=== PATIENT | female | born 1990 | race Caucasian/White ===

== ENCOUNTER 2018-10-19 22:48 | Emergency (ER) | payer OTHER ==
[~2018-10-19] VITALS: Ht 160 cm; Wt 97.7 kg
[~2018-10-19 22:48] MED LIST: DDAVP TAB0.2 MG PO; ELMIRON 10100 MG/CA1 PO; MYRBETR25MG PO; NO HOME MEDICATIONS; NORCO 325 MG-51 TAB PO; NUVARING VAG RING; NUVARING1 ICR VG; PERCOCET 325 MG1 TA2 PO; ZOFRAN ODT4 MG PO
[2018-10-19 22:54] VITALS: BP 145/81; TEMP 97.5
[2018-10-19 23:25] LABS: COLLECTION METHOD CLEAN CATCH
[2018-10-19 23:29] LABS: BASO # 0.1 (0.0-0.2); BASO % 0.4 % (0.0-2.0); EOS # 0.3 (0.0-0.7); EOS % 1.8 % (0-4.0); GRAN # 9.2 (1.4-6.5); GRAN % 61.3 % (42.2-75.2); HEMATOCRIT 43.4 % (37.0-47.0); HEMOGLOBIN 14.4 g/dl (12.5-16.0); LYMPH # 4.8 (1.2-3.4); LYMPH % 31.8 % (20.0-51.0); MEAN CELL VOLUME 84 fl (80.0-100.0); MEAN CORPUSCULAR HEMOGLOBIN 28 pg (27.0-31.0); MEAN CORPUSCULAR HGB CONC 33 g/dl (33.0-37.0); MEAN PLATELET VOLUME 9.7 fl (7.4-10.4); MONO # 0.6 (0.1-0.6); MONO % 4.3 % (1.7-9.3); PLATELET COUNT 375 K/mm3 (130-400); RED BLOOD COUNT 5.19 M/mm3 (4.10-5.30); REDCELL DISTRIBUTION WIDTH-CV 14.3 % (11.5-14.5)
[2018-10-19 23:42] LABS: ALBUMIN 4.5 gm/dL (3.5-5.0); BILIRUBIN,TOTAL 0.5 mg/dL (0.0-1.0); C-REACTIVE PROTEIN 1.6 mg/dL (0.0-0.9); CALCIUM 9.7 mg/dL (8.4-10.2); CREATININE, serum 0.79 mg/dL (0.52-1.25); POTASSIUM 3.6 mmol/L (3.4-5.0); TOTAL PROTEIN 8.1 gm/dL (6.4-8.2)
[2018-10-19 23:42] LABS: MUCOUS Present /lpf; PH 6 (5-8); URINE APPEARANCE Hazy; URINE BACTERIA Rare /hpf; URINE BILIRUBIN Negative (NEGATIVE); URINE BLOOD 3+ (NEGATIVE); URINE CALCIUM OXALATE CRYSTAL Present /hpf; URINE COLOR Amber; URINE GLUCOSE Negative (NEGATIVE); URINE KETONE Trace (NEGATIVE); URINE LEUKOCYTE ESTERASE Trace (NEGATIVE); URINE NITRATE Negative (NEGATIVE); URINE PROTEIN(semi-quant) 2+ (NEGATIVE); URINE RBC 20-50 /hpf
[2018-10-19] MEDS ORDERED: AMBIEN CR 12.12.5 MG PO (23:50)
[2018-10-19] MEDS ORDERED: GLUCOPHAGE500 MG/TAB PO (23:50)
[2018-10-19] MEDS ORDERED: EFFEXOR 75M75 MG/TAB PO (23:50)
[2018-10-20] MEDS ORDERED: ZOFRAN ODT4 MG PO (03:34)
[2018-10-20] MEDS ORDERED: OMNICEF 300MG300 MG PO (03:34)
[2018-10-20 03:57] VITALS: PULSE 112
== END 2018-10-20 04:00 | disposition home or self-care (01) ==
LOC: COL.ER 22:48
PROVIDERS: Physician Assistant
DX: N39.0 Urinary tract infection, site not specified (principal); N83.202 Unspecified ovarian cyst, left side; Z79.84 Long term (current) use of oral hypoglycemic drugs; Z87.442 Personal history of urinary calculi; Z97.5 Presence of (intrauterine) contraceptive device
CPT/HCPCS: A4216; J0696; J1170; J2405; J3010; J7030; Q9967

== ENCOUNTER 2018-11-19 20:22 | Emergency (ER) | payer OTHER ==
[~2018-11-19] VITALS: Ht 157.5 cm; Wt 100.0 kg
[~2018-11-19 20:22] MED LIST changes: +AMBIEN CR 12.12.5 MG PO; +EFFEXOR 75M75 MG/TAB PO; +GLUCOPHAGE500 MG/TAB PO; +OMNICEF 300MG300 MG PO
[2018-11-19 20:34] VITALS: TEMP 98.6
[2018-11-19 20:46] LABS: COLLECTION METHOD CLEAN CATCH
[2018-11-19 20:58] LABS: MUCOUS Present /lpf; PH 6 (5-8); URINE APPEARANCE Clear; URINE BACTERIA Rare /hpf; URINE BILIRUBIN Negative (NEGATIVE); URINE BLOOD Negative (NEGATIVE); URINE COLOR Yellow; URINE GLUCOSE Negative (NEGATIVE); URINE KETONE Negative (NEGATIVE); URINE LEUKOCYTE ESTERASE Negative (NEGATIVE); URINE NITRATE Negative (NEGATIVE); URINE PROTEIN(semi-quant) 1+ (NEGATIVE); URINE UROBILINOGEN Negative (NEGATIVE)
[2018-11-19 22:01] LABS: BASO # 0.1 (0.0-0.2); BASO % 0.4 % (0.0-2.0); EOS # 0.2 (0.0-0.7); EOS % 1.1 % (0-4.0); GRAN # 9.2 (1.4-6.5); HEMATOCRIT 42.5 % (37.0-47.0); HEMOGLOBIN 13.9 g/dl (12.5-16.0); LYMPH # 3.9 (1.2-3.4); LYMPH % 27.5 % (20.0-51.0); MEAN CELL VOLUME 84 fl (80.0-100.0); MEAN CORPUSCULAR HEMOGLOBIN 28 pg (27.0-31.0); MEAN CORPUSCULAR HGB CONC 33 g/dl (33.0-37.0); MEAN PLATELET VOLUME 10.2 fl (7.4-10.4); MONO # 0.9 (0.1-0.6); MONO % 6.5 % (1.7-9.3); PLATELET COUNT 332 K/mm3 (130-400); RED BLOOD COUNT 5.04 M/mm3 (4.10-5.30); REDCELL DISTRIBUTION WIDTH-CV 14.6 % (11.5-14.5)
[2018-11-19] MEDS ORDERED: XARELTO10 MG PO (22:05)
[2018-11-19 22:12] LABS: ALBUMIN 4.6 gm/dL (3.5-5.0); BILIRUBIN,TOTAL 0.2 mg/dL (0.0-1.0); CALCIUM 9.9 mg/dL (8.4-10.2); CREATININE, serum 0.67 mg/dL (0.52-1.25); TOTAL PROTEIN 8.3 gm/dL (6.4-8.2)
[2018-11-20 01:01] VITALS: BP 117/69; PULSE 96
== END 2018-11-20 01:01 | disposition home or self-care (01) ==
LOC: COL.ER 20:22
PROVIDERS: Emergency Medicine
DX: R10.9 Unspecified abdominal pain (principal); Z87.442 Personal history of urinary calculi
CPT/HCPCS: J1170; J1885; J2270; J2765; J3010; J7030

== ENCOUNTER 2018-11-26 23:53 | Emergency (ER) | payer OTHER ==
[~2018-11-26] VITALS: Ht 160 cm; Wt 97.7 kg
[~2018-11-26 23:53] MED LIST changes: +XARELTO10 MG PO
[2018-11-26 23:55] VITALS: TEMP 98.4
[2018-11-27 00:23] LABS: BASO # 0.1 (0.0-0.2); BASO % 0.4 % (0.0-2.0); EOS # 0.3 (0.0-0.7); EOS % 2.2 % (0-4.0); GRAN # 6.6 (1.4-6.5); GRAN % 52.4 % (42.2-75.2); HEMATOCRIT 40.9 % (37.0-47.0); HEMOGLOBIN 13.5 g/dl (12.5-16.0); LYMPH # 4.9 (1.2-3.4); LYMPH % 39.4 % (20.0-51.0); MEAN CELL VOLUME 85 fl (80.0-100.0); MEAN CORPUSCULAR HEMOGLOBIN 28 pg (27.0-31.0); MEAN CORPUSCULAR HGB CONC 33 g/dl (33.0-37.0); MEAN PLATELET VOLUME 10.5 fl (7.4-10.4); MONO # 0.7 (0.1-0.6); MONO % 5.4 % (1.7-9.3); PLATELET COUNT 331 K/mm3 (130-400); RED BLOOD COUNT 4.84 M/mm3 (4.10-5.30); REDCELL DISTRIBUTION WIDTH-CV 14.1 % (11.5-14.5)
[2018-11-27 00:31] LABS: PROTHROMBIN TIME 10.9 SECONDS (9.7-12.8)
[2018-11-27 00:34] LABS: PARTIAL THROMBOPLASTIN TIME 32.3 SECONDS (26.0-37.0)
[2018-11-27 00:35] LABS: ALBUMIN 4.3 gm/dL (3.5-5.0); BILIRUBIN,TOTAL 0.2 mg/dL (0.0-1.0); CALCIUM 9.6 mg/dL (8.4-10.2); CREATININE, serum 0.63 mg/dL (0.52-1.25); POTASSIUM 3.7 mmol/L (3.4-5.0); TOTAL PROTEIN 7.9 gm/dL (6.4-8.2)
[2018-11-27 00:40] LABS: D-DIMER < 200.00 ng/mLDDu (200-230)
[2018-11-27 01:53] LABS: COLLECTION METHOD CLEAN CATCH
[2018-11-27 02:00] LABS: MUCOUS Present /lpf; PH 5 (5-8); SQUAMOUS EPITHELIAL 0-2 /hpf; URINE APPEARANCE Clear; URINE BACTERIA None Seen /hpf; URINE BILIRUBIN Negative (NEGATIVE); URINE BLOOD 3+ (NEGATIVE); URINE COLOR Yellow; URINE GLUCOSE Negative (NEGATIVE); URINE KETONE Negative (NEGATIVE); URINE LEUKOCYTE ESTERASE Negative (NEGATIVE); URINE NITRATE Negative (NEGATIVE); URINE PROTEIN(semi-quant) Negative (NEGATIVE); URINE RBC >50 /hpf
[2018-11-27 03:10] VITALS: BP 141/89; PULSE 115
== END 2018-11-27 03:10 | disposition home or self-care (01) ==
LOC: COL.ER 23:53
PROVIDERS: Emergency Medicine
DX: R56.9 Unspecified convulsions (principal)
CPT/HCPCS: J1885; J2405; J3010; J7030

== ENCOUNTER 2018-12-07 23:40 | Emergency (ER) | payer OTHER ==
[~2018-12-07] VITALS: Ht 162.6 cm; Wt 100.0 kg
[2018-12-07 23:43] VITALS: TEMP 99.1
[2018-12-08] MEDS ORDERED: EFFEXOR XR75 MG/CAP PO (00:12)
[2018-12-08 00:13] LABS: COLLECTION METHOD CLEAN CATCH
[2018-12-08 00:22] LABS: MUCOUS Present /lpf; PH 6 (5-8); URINE APPEARANCE Clear; URINE BACTERIA None Seen /hpf; URINE BILIRUBIN Positive (NEGATIVE); URINE BLOOD Negative (NEGATIVE); URINE CALCIUM OXALATE CRYSTAL Present /hpf; URINE COLOR Amber; URINE GLUCOSE Negative (NEGATIVE); URINE KETONE Trace (NEGATIVE); URINE LEUKOCYTE ESTERASE Negative (NEGATIVE); URINE NITRATE Negative (NEGATIVE); URINE PROTEIN(semi-quant) 1+ (NEGATIVE)
[2018-12-08 02:23] VITALS: PULSE 103
[2018-12-08] MEDS ORDERED: FLEXERIL 1010 MG/TAB PO (02:47)
[2018-12-08] MEDS ORDERED: NORCO 325 MG-51 TAB PO (02:47)
[2018-12-08 03:19] VITALS: BP 128/80
== END 2018-12-08 03:19 | disposition home or self-care (01) ==
LOC: COL.ER 23:40
PROVIDERS: Physician Assistant
DX: S20.212A Contusion of left front wall of thorax, initial encounter (principal); S23.3XXA Sprain of ligaments of thoracic spine, initial encounter; S33.9XXA Sprain of unspecified parts of lumbar spine and pelvis, initial encounter; F41.9 Anxiety disorder, unspecified; F31.9 Bipolar disorder, unspecified; W10.9XXA Fall (on) (from) unspecified stairs and steps, initial encounter
CPT/HCPCS: J1885

== ENCOUNTER 2018-12-12 10:08 | Emergency (ER) | payer OTHER ==
[~2018-12-12] VITALS: Ht 160 cm; Wt 104.5 kg
[~2018-12-12 10:08] MED LIST changes: +EFFEXOR XR75 MG/CAP PO; +FLEXERIL 1010 MG/TAB PO
[2018-12-12 10:17] VITALS: BP 119/80; TEMP 98.1
[2018-12-12 10:33] LABS: COLLECTION METHOD CLEAN CATCH
[2018-12-12 10:39] LABS: MUCOUS Present /lpf; PH 5 (5-8); URINE APPEARANCE Hazy; URINE BACTERIA Rare /hpf; URINE BILIRUBIN Negative (NEGATIVE); URINE BLOOD Negative (NEGATIVE); URINE COLOR Yellow; URINE GLUCOSE Negative (NEGATIVE); URINE KETONE Negative (NEGATIVE); URINE LEUKOCYTE ESTERASE Negative (NEGATIVE); URINE NITRATE Negative (NEGATIVE); URINE PROTEIN(semi-quant) Negative (NEGATIVE); URINE RBC 0-2 /hpf; URINE UROBILINOGEN Negative (NEGATIVE)
[2018-12-12] MEDS ORDERED: ZOFRAN ODT4 MG PO (11:15)
[2018-12-12] MEDS ORDERED: LIDODERM 5% PATC1 EA TP (11:15)
[2018-12-12] MEDS ORDERED: MOTRIN 800800 MG/TAB PO (11:15)
[2018-12-12 11:52] VITALS: PULSE 85
== END 2018-12-12 11:53 | disposition home or self-care (01) ==
LOC: COL.ER 10:08
PROVIDERS: Physician Assistant
DX: R10.9 Unspecified abdominal pain (principal)
CPT/HCPCS: J1885

== ENCOUNTER 2019-02-06 13:06 | Emergency (ER) | payer OTHER ==
[~2019-02-06] VITALS: Ht 160 cm; Wt 104.5 kg
[~2019-02-06 13:06] MED LIST changes: +LIDODERM 5% PATC1 EA TP; +MOTRIN 800800 MG/TAB PO
[2019-02-06 13:14] VITALS: TEMP 98.6
[2019-02-06 14:05] LABS: BASO # 0.1 (0.0-0.2); BASO % 0.4 % (0.0-2.0); EOS # 0.2 (0.0-0.7); EOS % 1.4 % (0-4.0); GRAN # 9.1 (1.4-6.5); GRAN % 69.2 % (42.2-75.2); HEMATOCRIT 40.9 % (37.0-47.0); HEMOGLOBIN 13.3 g/dl (12.5-16.0); LYMPH # 3.1 (1.2-3.4); LYMPH % 23.5 % (20.0-51.0); MEAN CELL VOLUME 85 fl (80.0-100.0); MEAN CORPUSCULAR HEMOGLOBIN 28 pg (27.0-31.0); MEAN CORPUSCULAR HGB CONC 33 g/dl (33.0-37.0); MEAN PLATELET VOLUME 9.9 fl (7.4-10.4); MONO # 0.7 (0.1-0.6); PLATELET COUNT 306 K/mm3 (130-400); RED BLOOD COUNT 4.82 M/mm3 (4.10-5.30); REDCELL DISTRIBUTION WIDTH-CV 13.9 % (11.5-14.5)
[2019-02-06] MEDS ORDERED: GLUCOPHAGE500 MG/TAB PO (14:11)
[2019-02-06] MEDS ORDERED: XANAX 1MG1 MG PO (14:11)
[2019-02-06 14:22] LABS: ALANINE AMINOTRANSFERASE 34 U/L (9-52); ALBUMIN 4.3 gm/dL (3.5-5.0); ALKALINE PHOSPHATASE 108 U/L (50-136); ANION GAP 10 mmol/L (7-16); AST,SGOT 34 U/L (15-37); BILIRUBIN,TOTAL 0.6 mg/dL (0.0-1.0); BLOOD UREA NITROGEN 10 mg/dL (7-17); CALCIUM 9.3 mg/dL (8.4-10.2); CARBON DIOXIDE 25 mmol/L (22-30); CHLORIDE 106 mmol/L (98-107); CREATININE, serum 0.67 (0.52-1.25); GLUCOSE 87 mg/dL (74-106); POTASSIUM 3.9 mmol/L (3.4-5.0); SODIUM 141 mmol/L (137-145); TOTAL PROTEIN 7.9 gm/dL (6.4-8.2)
[2019-02-06 14:54] LABS: TROPONIN-I < 0.012 ng/mL (0.000-0.035)
[2019-02-06 15:17] LABS: COLLECTION METHOD CLEAN CATCH
[2019-02-06 15:23] LABS: MUCOUS Present /lpf; PH 6 (5-8); SQUAMOUS EPITHELIAL 0-2 /hpf; URINE APPEARANCE Hazy; URINE BACTERIA Rare /hpf; URINE BILIRUBIN Negative (NEGATIVE); URINE BLOOD Negative (NEGATIVE); URINE COLOR Yellow; URINE GLUCOSE Negative (NEGATIVE); URINE KETONE 1+ (NEGATIVE); URINE LEUKOCYTE ESTERASE Negative (NEGATIVE); URINE NITRATE Negative (NEGATIVE); URINE PROTEIN(semi-quant) 1+ (NEGATIVE); URINE UROBILINOGEN Negative (NEGATIVE)
[2019-02-06 15:53] VITALS: BP 116/77; PULSE 92
== END 2019-02-06 16:05 | disposition home or self-care (01) ==
LOC: COL.ER 13:06
PROVIDERS: Physician Assistant
DX: S00.93XA Contusion of unspecified part of head, initial encounter (principal); R55 Syncope and collapse; Z87.442 Personal history of urinary calculi; Z86.711 Personal history of pulmonary embolism; W19.XXXA Unspecified fall, initial encounter; Z79.84 Long term (current) use of oral hypoglycemic drugs
CPT/HCPCS: J2405; J7030

== ENCOUNTER 2019-02-18 17:15 | Emergency (ER) | payer OTHER ==
[~2019-02-18] VITALS: Ht 157.5 cm; Wt 103.2 kg
[~2019-02-18 17:15] MED LIST changes: +MOTRIN 600600 MG/TAB PO; +ULTRAM 50MG TAB50 MG PO; +XANAX 1MG1 MG PO
[2019-02-18 17:26] VITALS: TEMP 97.7
[2019-02-18 18:05] LABS: BASO # 0.1 (0.0-0.2); BASO % 0.5 % (0.0-2.0); EOS # 0.3 (0.0-0.7); EOS % 2.6 % (0-4.0); GRAN # 7.1 (1.4-6.5); HEMATOCRIT 42.4 % (37.0-47.0); LYMPH # 2.9 (1.2-3.4); LYMPH % 26.7 % (20.0-51.0); MEAN CELL VOLUME 84 fl (80.0-100.0); MEAN CORPUSCULAR HGB CONC 33 g/dl (33.0-37.0); MONO # 0.5 (0.1-0.6); MONO % 4.9 % (1.7-9.3); PLATELET COUNT 355 K/mm3 (130-400); RED BLOOD COUNT 5.06 M/mm3 (4.10-5.30); REDCELL DISTRIBUTION WIDTH-CV 13.7 % (11.5-14.5)
[2019-02-18 18:07] LABS: HEMOGLOBIN 13.9 g/dl (12.5-16.0); MEAN CORPUSCULAR HEMOGLOBIN 27 pg (27.0-31.0)
[2019-02-18 18:18] LABS: ALBUMIN 4.5 gm/dL (3.5-5.0); BILIRUBIN,TOTAL 0.4 mg/dL (0.0-1.0); C-REACTIVE PROTEIN 1.5 mg/dL (0.0-0.9); CALCIUM 9.6 mg/dL (8.4-10.2); CREATININE, serum 0.69 (0.52-1.25); POTASSIUM 4.4 mmol/L (3.4-5.0); TOTAL PROTEIN 8.2 gm/dL (6.4-8.2)
[2019-02-18 19:09] LABS: COLLECTION METHOD CLEAN CATCH
[2019-02-18 19:27] LABS: MUCOUS Present /lpf; PH 9 (5-8); URINE APPEARANCE Clear; URINE BACTERIA None Seen /hpf; URINE BILIRUBIN Negative (NEGATIVE); URINE BLOOD Negative (NEGATIVE); URINE COLOR Yellow; URINE GLUCOSE Negative (NEGATIVE); URINE KETONE Negative (NEGATIVE); URINE LEUKOCYTE ESTERASE Negative (NEGATIVE); URINE NITRATE Negative (NEGATIVE); URINE PROTEIN(semi-quant) 1+ (NEGATIVE); URINE UROBILINOGEN Negative (NEGATIVE)
[2019-02-18] MEDS ORDERED: ZOFRAN ODT4 MG PO (19:58)
[2019-02-18] MEDS ORDERED: PHENERGAN 25 TA25 MG PO (19:58)
[2019-02-18 20:24] VITALS: BP 128/68; PULSE 88
== END 2019-02-18 20:28 | disposition home or self-care (01) ==
LOC: COL.ER 17:15
PROVIDERS: Emergency Medicine
DX: R10.31 Right lower quadrant pain (principal); Z90.49 Acquired absence of other specified parts of digestive tract
CPT/HCPCS: J1170; J2550; J7030; Q9967

== ENCOUNTER 2019-02-28 13:23 | Day surgery (SDC) | payer OTHER ==
[~2019-02-28] VITALS: Ht 160 cm; Wt 101.7 kg
[~2019-02-28 13:23] MED LIST changes: +PHENERGAN 25 TA25 MG PO
[2019-02-28 14:16] VITALS: BP 119/87; PULSE 86; TEMP 98.3
[2019-02-28 15:20] VITALS: BP 135/94; PULSE 88; TEMP 98.3
--- NOTE | 2019-02-28 15:20 | NUR ---
Pt returns to [facility] from [facility] procedure via cart. Pt ambulates with RN assist x 2 from cart to recliner. Monitors on and alarms set. Call light within reach. Pt is drowsy but answers all questions appropriately. Report received from LEEANNA Lane. Pt states she has no pain but does complain of nausea. "Mom" present in room. Pt allowed to rest for now.
--- NOTE | 2019-02-28 15:25 | NUR ---
Cool washcloth given to patient and placed on back of neck. Order for Zofran 4 mg IV once obtained from Dr. Bey.
[2019-02-28] MEDS ORDERED: PROTONIX 40MG T40 MG (15:27)
[2019-02-28 15:30] VITALS: BP 124/65; PULSE 97
--- NOTE | 2019-02-28 15:30 | NUR ---
Pt continues to be drowsy but is progressively getting more alert. Pt answers all questions appropriately. Pt continues to have nausea feelings but has not vomited.
--- NOTE | 2019-02-28 15:35 | NUR ---
Pt states nausea is much better. Pt requests ice water and crackers. Gag reflex is present.
[2019-02-28 15:45] VITALS: BP 123/81; PULSE 94
--- NOTE | 2019-02-28 15:45 | NUR ---
Pt taking food and drink well. No complications voiced by patients. Pt states she'd just like to sleep.
[2019-02-28 16:00] VITALS: BP 102/71; PULSE 84
[2019-02-28 16:15] VITALS: BP 112/78; PULSE 84
--- NOTE | 2019-02-28 16:25 | NUR ---
Pt transferred out of hospital via wheelchair and LEEANNA Lane assist, to private vehicle driven by "Mom."
--- NOTE | 2019-02-28 16:27 | NUR ---
Discharge instructions given to patient and "Mom." Handed to them are a thank you card, discharge instructions, diagnosis information, a discharge summary, and discharge med sheet. All questions answered to their satisfaction.
--- NOTE | 2019-02-28 16:35 | NUR ---
Pt transferred out of hospital via wheelchair and LEEANNA Lane assist, to private vehicle driven by "Mom."
== END 2019-02-28 16:35 | disposition home or self-care (01) ==
LOC: SDCO 13:23
DX: R19.7 Diarrhea, unspecified (principal); K92.0 Hematemesis; K21.9 Gastro-esophageal reflux disease without esophagitis
CPT/HCPCS: J2250; J2405; J3010; J7030

== ENCOUNTER 2019-03-09 14:31 | Emergency (ER) | payer OTHER ==
[~2019-03-09] VITALS: Ht 160 cm; Wt 102.5 kg
[~2019-03-09 14:31] MED LIST changes: +PROTONIX 40MG T40 MG
[2019-03-09 14:33] VITALS: BP 128/88; TEMP 99.1
[2019-03-09] MEDS ORDERED: ULTRAM 50MG TAB50 MG PO (14:44)
[2019-03-09] MEDS ORDERED: MOTRIN 600600 MG/TAB PO (14:45)
[2019-03-09] MEDS ORDERED: PHENERGAN 25 TA25 MG PO ×2 (14:45→17:04)
[2019-03-09] MEDS ORDERED: CARAFATE 1GM1 G PO (14:57)
[2019-03-09 15:34] LABS: COLLECTION METHOD CLEAN CATCH
[2019-03-09 15:53] LABS: BILIRUBIN,TOTAL 0.3 mg/dL (0.0-1.0); C-REACTIVE PROTEIN 1.4 mg/dL (0.0-0.9); CALCIUM 9.4 mg/dL (8.4-10.2); CREATININE, serum 0.61 (0.52-1.25); POTASSIUM 4.1 mmol/L (3.4-5.0); TOTAL PROTEIN 7.4 gm/dL (6.4-8.2)
[2019-03-09 15:55] LABS: BASO % 0.3 % (0.0-2.0); EOS # 0.2 (0.0-0.7); EOS % 1.7 % (0-4.0); GRAN # 7.2 (1.4-6.5); GRAN % 67.4 % (42.2-75.2); HEMATOCRIT 39.6 % (37.0-47.0); HEMOGLOBIN 12.7 g/dl (12.5-16.0); LYMPH # 2.7 (1.2-3.4); LYMPH % 25.2 % (20.0-51.0); MEAN CELL VOLUME 86 fl (80.0-100.0); MEAN CORPUSCULAR HEMOGLOBIN 27 pg (27.0-31.0); MEAN CORPUSCULAR HGB CONC 32 g/dl (33.0-37.0); MEAN PLATELET VOLUME 10.4 fl (7.4-10.4); MONO # 0.5 (0.1-0.6); PLATELET COUNT 291 K/mm3 (130-400); RED BLOOD COUNT 4.63 M/mm3 (4.10-5.30)
[2019-03-09 15:57] LABS: MUCOUS Present /lpf; PH 5 (5-8); URINE APPEARANCE Hazy; URINE BACTERIA None Seen /hpf; URINE BILIRUBIN Negative (NEGATIVE); URINE BLOOD Negative (NEGATIVE); URINE CALCIUM OXALATE CRYSTAL Present /hpf; URINE COLOR Yellow; URINE GLUCOSE Negative (NEGATIVE); URINE KETONE Negative (NEGATIVE); URINE LEUKOCYTE ESTERASE Negative (NEGATIVE); URINE NITRATE Negative (NEGATIVE); URINE PROTEIN(semi-quant) 1+ (NEGATIVE); URINE UROBILINOGEN Negative (NEGATIVE)
[2019-03-09 16:21] LABS: ERYTHROCYTE SEDIMENTATION RATE 18 mm/hr (0-20)
[2019-03-09] MEDS ORDERED: LOMOTIL 0.025 M1 TAB PO (16:52)
[2019-03-09 17:33] VITALS: PULSE 96
== END 2019-03-09 17:32 | disposition home or self-care (01) ==
LOC: COL.ER 14:31
PROVIDERS: Emergency Medicine
DX: R10.12 Left upper quadrant pain (principal); Z90.49 Acquired absence of other specified parts of digestive tract
CPT/HCPCS: J0780; J1170; J7030

== ENCOUNTER 2019-03-26 21:59 | Emergency (ER) | payer OTHER ==
[~2019-03-26] VITALS: Ht 160 cm; Wt 99.1 kg
[~2019-03-26 21:59] MED LIST changes: +CARAFATE 1GM1 G PO; +LOMOTIL 0.025 M1 TAB PO; -PROTONIX 40MG T40 MG; +PROTONIX 40MG T40 MG PO
[2019-03-26 22:04] VITALS: TEMP 97.8
[2019-03-26] MEDS ORDERED: ZOFRAN 4MG T4 MG/TAB PO (22:17)
[2019-03-26 22:35] LABS: BASO # 0.1 (0.0-0.2); BASO % 0.4 % (0.0-2.0); EOS # 0.2 (0.0-0.7); EOS % 1.9 % (0-4.0); GRAN # 7.2 (1.4-6.5); GRAN % 59.7 % (42.2-75.2); HEMATOCRIT 37.4 % (37.0-47.0); HEMOGLOBIN 11.9 g/dl (12.5-16.0); LYMPH % 32.9 % (20.0-51.0); MEAN CELL VOLUME 87 fl (80.0-100.0); MEAN CORPUSCULAR HEMOGLOBIN 28 pg (27.0-31.0); MEAN CORPUSCULAR HGB CONC 32 g/dl (33.0-37.0); MEAN PLATELET VOLUME 10.2 fl (7.4-10.4); MONO # 0.6 (0.1-0.6); MONO % 4.8 % (1.7-9.3); PLATELET COUNT 289 K/mm3 (130-400); RED BLOOD COUNT 4.31 M/mm3 (4.10-5.30); REDCELL DISTRIBUTION WIDTH-CV 14.1 % (11.5-14.5)
[2019-03-26 22:53] LABS: ALANINE AMINOTRANSFERASE 19 U/L (9-52); ALBUMIN 3.4 gm/dL (3.5-5.0); ALKALINE PHOSPHATASE 91 U/L (50-136); ANION GAP 8 mmol/L (7-16); AST,SGOT 19 U/L (15-37); BILIRUBIN,TOTAL 0.2 mg/dL (0.0-1.0); BLOOD UREA NITROGEN 7 mg/dL (7-17); C-REACTIVE PROTEIN 1.2 mg/dL (0.0-0.9); CALCIUM 8.1 mg/dL (8.4-10.2); CARBON DIOXIDE 23 mmol/L (22-30); CHLORIDE 109 mmol/L (98-107); CREATININE, serum 0.71 (0.52-1.25); GLUCOSE 93 mg/dL (74-106); LIPASE 39 U/L (23-300); POTASSIUM 3.6 mmol/L (3.4-5.0); SODIUM 139 mmol/L (137-145); TOTAL PROTEIN 6.4 gm/dL (6.4-8.2)
[2019-03-26 23:06] LABS: PROLACTIN 22.6 ng/mL (3.0-18.6)
[2019-03-26] MEDS ORDERED: KEPPRA 500MG500 MG PO (23:10)
[2019-03-26 23:13] LABS: HCG,QUANTITATIVE < 2 mIU/mL (0-5)
[2019-03-26 23:42] VITALS: BP 111/78; PULSE 93
== END 2019-03-26 23:44 | disposition home or self-care (01) ==
LOC: COL.ER 21:59
PROVIDERS: Emergency Medicine
DX: G40.909 Epilepsy, unspecified, not intractable, without status epilepticus (principal)
CPT/HCPCS: J1953; J2060

== ENCOUNTER 2019-03-28 10:58 | Emergency (ER) | payer OTHER ==
[~2019-03-28] VITALS: Ht 160 cm; Wt 100.0 kg
[~2019-03-28 10:58] MED LIST changes: +KEPPRA 500MG500 MG PO; +ZOFRAN 4MG T4 MG/TAB PO
[2019-03-28 10:59] VITALS: BP 117/71
[2019-03-28 11:42] LABS: BASO % 0.3 % (0.0-2.0); EOS # 0.1 (0.0-0.7); EOS % 1.2 % (0-4.0); GRAN # 4.7 (1.4-6.5); GRAN % 68.7 % (42.2-75.2); HEMATOCRIT 39.4 % (37.0-47.0); HEMOGLOBIN 12.7 g/dl (12.5-16.0); LYMPH # 1.6 (1.2-3.4); MEAN CELL VOLUME 85 fl (80.0-100.0); MEAN CORPUSCULAR HEMOGLOBIN 28 pg (27.0-31.0); MEAN CORPUSCULAR HGB CONC 32 g/dl (33.0-37.0); MEAN PLATELET VOLUME 10.3 fl (7.4-10.4); MONO # 0.4 (0.1-0.6); MONO % 6.4 % (1.7-9.3); PLATELET COUNT 269 K/mm3 (130-400); RED BLOOD COUNT 4.62 M/mm3 (4.10-5.30); REDCELL DISTRIBUTION WIDTH-CV 14.4 % (11.5-14.5)
[2019-03-28 11:48] LABS: ALBUMIN 3.9 gm/dL (3.5-5.0); BILIRUBIN,TOTAL 0.7 mg/dL (0.0-1.0); CALCIUM 8.9 mg/dL (8.4-10.2); CREATININE, serum 0.69 (0.52-1.25); POTASSIUM 4.1 mmol/L (3.4-5.0); TOTAL PROTEIN 7.1 gm/dL (6.4-8.2)
[2019-03-28 12:05] LABS: PROLACTIN 17.1 ng/mL (3.0-18.6)
[2019-03-28 13:14] VITALS: PULSE 90; TEMP 97.8
== END 2019-03-28 13:25 | disposition home or self-care (01) ==
LOC: COL.ER 10:58
PROVIDERS: Emergency Medicine
DX: R56.9 Unspecified convulsions (principal)
CPT/HCPCS: J1630; J1953; J2060

== ENCOUNTER → 2019-04-06 | Emergency (ER) | payer OTHER ==
[~2019-04-06] VITALS: Ht 160 cm; Wt 98.6 kg
[~2019-04-06] MED LIST changes: +VALTREX1 GM PO
[2019-04-06 11:59] VITALS: TEMP 98.1
[2019-04-06 12:31] LABS: BASO % 0.3 % (0.0-2.0); EOS # 0.1 (0.0-0.7); EOS % 1.2 % (0-4.0); GRAN # 5.4 (1.4-6.5); GRAN % 69.8 % (42.2-75.2); HEMATOCRIT 41.8 % (37.0-47.0); HEMOGLOBIN 13.4 g/dl (12.5-16.0); LYMPH # 1.7 (1.2-3.4); LYMPH % 22.5 % (20.0-51.0); MEAN CELL VOLUME 85 fl (80.0-100.0); MEAN CORPUSCULAR HEMOGLOBIN 27 pg (27.0-31.0); MEAN CORPUSCULAR HGB CONC 32 g/dl (33.0-37.0); MEAN PLATELET VOLUME 10.2 fl (7.4-10.4); MONO # 0.5 (0.1-0.6); MONO % 5.8 % (1.7-9.3); PLATELET COUNT 286 K/mm3 (130-400); RED BLOOD COUNT 4.93 M/mm3 (4.10-5.30); REDCELL DISTRIBUTION WIDTH-CV 14.3 % (11.5-14.5)
[2019-04-06 12:43] LABS: ALBUMIN 4.5 gm/dL (3.5-5.0); BILIRUBIN,TOTAL 0.3 mg/dL (0.0-1.0); C-REACTIVE PROTEIN 1.4 mg/dL (0.0-0.9); CALCIUM 9.5 mg/dL (8.4-10.2); CREATININE, serum 0.67 (0.52-1.25); POTASSIUM 4.1 mmol/L (3.4-5.0); TOTAL PROTEIN 8.1 gm/dL (6.4-8.2)
[2019-04-06 15:26] VITALS: BP 119/81; PULSE 73
== END ==
LOC: COL.ER 11:52
PROVIDERS: Physician Assistant
DX: B02.9 Zoster without complications (principal); M54.2 Cervicalgia; R51 Headache; R11.10 Vomiting, unspecified; G40.909 Epilepsy, unspecified, not intractable, without status epilepticus; F32.9 Major depressive disorder, single episode, unspecified; Z90.49 Acquired absence of other specified parts of digestive tract
CPT/HCPCS: J1170; J1200; J2550; J7030

== ENCOUNTER 2019-04-26 19:49 | Emergency (ER) | payer OTHER ==
[~2019-04-26] VITALS: Ht 160 cm; Wt 97.7 kg
[~2019-04-26 19:49] MED LIST changes: +ALDACTONE50 MG PO; +AMBIEN 10MG10 MG PO; +CEPHALEXIN500 M1 PO; +NEURONTIN300 MG/CAP PO
[2019-04-26 19:52] VITALS: BP 155/63; TEMP 98
[2019-04-26 20:40] LABS: BASO % 0.4 % (0.0-2.0); EOS # 0.3 (0.0-0.7); EOS % 2.4 % (0-4.0); GRAN # 5.4 (1.4-6.5); GRAN % 51.5 % (42.2-75.2); HEMATOCRIT 38.3 % (37.0-47.0); HEMOGLOBIN 12.3 g/dl (12.5-16.0); LYMPH # 4.2 (1.2-3.4); LYMPH % 40.4 % (20.0-51.0); MEAN CELL VOLUME 83 fl (80.0-100.0); MEAN CORPUSCULAR HEMOGLOBIN 27 pg (27.0-31.0); MEAN CORPUSCULAR HGB CONC 32 g/dl (33.0-37.0); MEAN PLATELET VOLUME 10.2 fl (7.4-10.4); MONO # 0.5 (0.1-0.6); MONO % 5.1 % (1.7-9.3); PLATELET COUNT 297 K/mm3 (130-400); RED BLOOD COUNT 4.59 M/mm3 (4.10-5.30); REDCELL DISTRIBUTION WIDTH-CV 14.4 % (11.5-14.5)
[2019-04-26 21:08] LABS: ALBUMIN 4.1 gm/dL (3.5-5.0); BILIRUBIN,TOTAL 0.2 mg/dL (0.0-1.0); CALCIUM 9.2 mg/dL (8.4-10.2); CREATININE, serum 0.57 (0.52-1.25); POTASSIUM 3.9 mmol/L (3.4-5.0); TOTAL PROTEIN 7.4 gm/dL (6.4-8.2)
[2019-04-26 21:36] LABS: COLLECTION METHOD CLEAN CATCH
[2019-04-26 21:44] LABS: MUCOUS Present /lpf; PH 6 (5-8); URINE APPEARANCE Hazy; URINE BACTERIA None Seen /hpf; URINE BILIRUBIN Negative (NEGATIVE); URINE BLOOD Negative (NEGATIVE); URINE COLOR Yellow; URINE GLUCOSE Negative (NEGATIVE); URINE KETONE Negative (NEGATIVE); URINE LEUKOCYTE ESTERASE Trace (NEGATIVE); URINE NITRATE Negative (NEGATIVE); URINE PROTEIN(semi-quant) Negative (NEGATIVE); URINE UROBILINOGEN Negative (NEGATIVE)
[2019-04-26 22:09] VITALS: PULSE 87
== END 2019-04-26 22:09 | disposition home or self-care (01) ==
LOC: COL.ER 19:49
PROVIDERS: Emergency Medicine
DX: G89.18 Other acute postprocedural pain (principal); Z90.49 Acquired absence of other specified parts of digestive tract; Z96.0 Presence of urogenital implants
CPT/HCPCS: J2405; J2765; J3010; J7030